=== PATIENT | female | born 1990 | race Caucasian/White ===

== ENCOUNTER 2019-12-29 15:09 | Emergency (ER) | payer SELFPAY ==
[~2019-12-29] VITALS: Ht 182.9 cm; Wt 100.5 kg
[2019-12-29 15:23] VITALS: BP 141/101; TEMP 98.3
[2019-12-29 17:56] VITALS: PULSE 77
== END 2019-12-29 18:00 | disposition home or self-care (01) ==
LOC: COL.ER 15:09
DX: R04.0 Epistaxis (principal)

== ENCOUNTER 2020-07-05 20:24 | Emergency (ER) | payer SELFPAY ==
[~2020-07-05] VITALS: Ht 182.9 cm; Wt 99.5 kg
[2020-07-05 20:33] VITALS: TEMP 98.4
[2020-07-05 21:40] LABS: BASO # 0.1 (0.0-0.2); BASO % 0.6 % (0.0-2.0); EOS # 0.1 (0.0-0.7); EOS % 1.4 % (0-4.0); GRAN # 6.2 (1.4-6.5); GRAN % 66.4 % (42.2-75.2); HEMATOCRIT 38.9 % (37.0-47.0); HEMOGLOBIN 13.1 g/dl (12.5-16.0); LYMPH # 2.5 (1.2-3.4); LYMPH % 26.7 % (20.0-51.0); MEAN CELL VOLUME 88 fl (80.0-100.0); MEAN CORPUSCULAR HEMOGLOBIN 30 pg (27.0-31.0); MEAN CORPUSCULAR HGB CONC 34 g/dl (33.0-37.0); MEAN PLATELET VOLUME 9.2 fl (7.4-10.4); MONO # 0.4 (0.1-0.6); MONO % 4.7 % (1.7-9.3); PLATELET COUNT 320 K/mm3 (130-400); RED BLOOD COUNT 4.42 M/mm3 (4.10-5.30); REDCELL DISTRIBUTION WIDTH-CV 12.6 % (11.5-14.5)
[2020-07-05 21:54] LABS: CALCIUM 9.1 mg/dL (8.4-10.2); CREATININE, serum 0.8 (0.52-1.25); POTASSIUM 3.6 mmol/L (3.4-5.0)
[2020-07-06 00:50] VITALS: BP 117/80; PULSE 91
== END 2020-07-06 01:00 | disposition home or self-care (01) ==
LOC: COL.ER 20:24
PROVIDERS: Emergency Medicine
DX: T18.128A Food in esophagus causing other injury, initial encounter (principal); Z90.89 Acquired absence of other organs; X58.XXXA Exposure to other specified factors, initial encounter
CPT/HCPCS: J2060; J2704